=== PATIENT | male | born 1990 | race Caucasian/White ===

== ENCOUNTER 2017-07-29 19:37 | Emergency (ER) | payer SELFPAY ==
[~2017-07-29] VITALS: Ht 167.6 cm; Wt 71.1 kg
[~2017-07-29 19:37] MED LIST: Z.0.NO CURRENT MEDS
[2017-07-29 19:38] VITALS: BP 129/78; PULSE 72; RESP 16; TEMP 97.9; O2SAT 98
[2017-07-29] MEDS ORDERED: SODIUM CHLOR 0.9% 1000 ML INJ 1,000 ML IV SCH (19:49)
--- NOTE | 2017-07-29 19:52 | PD ---
HPI Chief Complaint: GI Complaint Time Seen by Provider: 19:43 Travel History International Travel<30 days: No Contact w/Intl Traveler<30days: No Traveled to known affect area: No History of Present Illness HPI 26-year-old male here for evaluation of epigastric and left upper quadrant abdominal pain. The patient reports that the pain has been going on for about a week, constant, intermittently worse at times, currently 5 out of 10, sharp, nonradiating, worse with inspiration, worse in the morning and in the evening time. He denies history of abdominal surgeries. No fevers or chills. No nausea or vomiting. No history of DVT or PE. No hemoptysis. No chest pain. PFSH Past Medical History Diminished Hearing: No Immunizations Current: No Social History Alcohol Use: No Tobacco Use: No Substance Use: No Allergies-Medications (Allergen,Severity, Reaction): Coded Allergies: No Known Allergies (Unverified Adverse Reaction, Unknown, 07/29/17) Reported Meds & Prescriptions Reported Meds & Active Scripts Active No Active Prescriptions or Reported Medications Review of Systems Except as stated in HPI: all other systems reviewed are Neg Physical Exam Narrative GENERAL: Well-developed, well-nourished, comfortable, no apparent distress. SKIN: Focused skin assessment warm/dry. No rash. HEAD: Atraumatic. Normocephalic. EYES: Pupils equal and round. No scleral icterus. No injection or drainage. ENT: Mucous membranes pink and moist. NECK: Trachea midline. No JVD. CARDIOVASCULAR: Regular rate and rhythm. No murmur appreciated. RESPIRATORY: No accessory muscle use. Clear to auscultation. Breath sounds equal bilaterally. GASTROINTESTINAL: Abdomen soft, nondistended. Mild epigastric and left upper quadrant tenderness without peritoneal signs. Rest of abdomen is soft and nontender. No hernias. Normal bowel sounds. MUSCULOSKELETAL: No obvious deformities. No clubbing. No cyanosis. No edema. NEUROLOGICAL: Awake and alert. No obvious cranial nerve deficits. Motor grossly within normal limits. Normal speech. PSYCHIATRIC: Appropriate mood and affect; insight and judgment normal. Data Data Last Documented VS Vital Signs Date Time Temp Pulse Resp B/P (MAP) Pulse Ox O2 Delivery O2 Flow Rate FiO2 07/29/17 21:20 74 16 148/73 (98) 97 Room Air 07/29/17 19:38 97.9 Orders Orders Complete Blood Count With Diff (07/29/17 19:49) Comprehensive Metabolic Panel (07/29/17 19:49) Lipase (07/29/17 19:49) Prothrombin Time / Inr (Pt) (07/29/17 19:49) Act Partial Throm Time (Ptt) (07/29/17 19:49) Urinalysis - C+S If Indicated (07/29/17 19:49) Ct Abd/Pel W Iv Contrast(Rout) (07/29/17 19:49) Iv Access Insert/Monitor (07/29/17 19:49) Ecg Monitoring (07/29/17 19:49) Oximetry (07/29/17 19:49) Pantoprazole Inj (Protonix Inj) (07/29/17 20:00) Sodium Chlor 0.9% 1000 Ml Inj (Ns 1000 M (07/29/17 19:49) Sodium Chloride 0.9% Flush (Ns Flush) (07/29/17 20:00) Al-Mag Hy-Si 40-40-4 Mg/Ml Liq (Mag-Al P (07/29/17 20:00) Lidocaine 2% Viscous (Xylocaine 2% Visco (07/29/17 20:00) Electrocardiogram (07/29/17 19:49) Chest, Single Ap (07/29/17 19:49) Iohexol 350 Inj (Omnipaque 350 Inj) (07/29/17 21:46) Labs Laboratory Tests Test 07/29/17 20:10 07/29/17 20:35 White Blood Count 7.6 TH/MM3 Red Blood Count 5.45 MIL/MM3 Hemoglobin 15.7 GM/DL Hematocrit 47.1 % Mean Corpuscular Volume 86.5 FL Mean Corpuscular Hemoglobin 28.9 PG Mean Corpuscular Hemoglobin Concent 33.4 % Red Cell Distribution Width 11.4 % Platelet Count 306 TH/MM3 Mean Platelet Volume 8.3 FL Neutrophils (%) (Auto) 56.6 % Lymphocytes (%) (Auto) 30.9 % Monocytes (%) (Auto) 9.2 % Eosinophils (%) (Auto) 2.9 % Basophils (%) (Auto) 0.4 % Neutrophils # (Auto) 4.4 TH/MM3 Lymphocytes # (Auto) 2.3 TH/MM3 Monocytes # (Auto) 0.7 TH/MM3 Eosinophils # (Auto) 0.2 TH/MM3 Basophils # (Auto) 0.0 TH/MM3 CBC Comment DIFF FINAL Differential Comment Prothrombin Time 11.0 SEC Prothromb Time International Ratio 1.1 RATIO Activated Partial Thromboplast Time 28.6 SEC Blood Urea Nitrogen 12 MG/DL Creatinine 0.93 MG/DL Random Glucose 94 MG/DL Total Protein 7.6 GM/DL Albumin 4.1 GM/DL Calcium Level 8.8 MG/DL Alkaline Phosphatase 79 U/L Aspartate Amino Transf (AST/SGOT) 20 U/L Alanine Aminotransferase (ALT/SGPT) 21 U/L Total Bilirubin 0.5 MG/DL Sodium Level 139 MEQ/L Potassium Level 3.5 MEQ/L Chloride Level 105 MEQ/L Carbon Dioxide Level 27.1 MEQ/L Anion Gap 7 MEQ/L Estimat Glomerular Filtration Rate 100 ML/MIN Lipase 140 U/L Urine Color YELLOW Urine Turbidity CLEAR Urine pH 7.0 Urine Specific [place] 1.017 Urine Protein NEG mg/dL Urine Glucose (UA) NEG mg/dL Urine Ketones NEG mg/dL Urine Occult Blood NEG Urine Nitrite NEG Urine Bilirubin NEG Urine Leukocyte Esterase NEG Urine WBC 0-2 /hpf Urine Squamous Epithelial Cells 0-5 /hpf Microscopic Urinalysis Comment CULT NOT INDICATED MDM Medical Decision Making Medical Screen Exam Complete: Yes Emergency Medical Condition: Yes Interpretation(s) EKG: Sinus, rate 65, normal axis, normal intervals, no acute ischemic abnormality. Differential Diagnosis Gastritis, peptic ulcer disease, pancreatitis, hepatobiliary disease, splenic infarct, GERD, ACS unlikely, PE unlikely Narrative Course Vital signs are within normal limits. CBC is unremarkable. CMP is unremarkable. UA is within normal limits, not suggestive of UTI, no hematuria. Chest x-ray: No acute cardiopulmonary disease. CT Abdomen pelvis: Essentially unremarkable study. The patient was given GI cocktail and IV Protonix and on reassessment he is resting comfortably. There are no peritoneal signs on exam. His pain is mainly left upper quadrant and I believe he likely has gastritis or even peptic ulcer disease. Plan is to start him on Protonix. I informed him on foods and medications to avoid especially NSAIDs. He will be given the information to the [place] [facility] as well as the integrated program teacher sculpture conservator with him to follow up with this week. He was informed on when to return to the emergency department. He verbalizes understanding and agreement with plan. Diagnosis Primary Impression: Abdominal pain, left upper quadrant Referrals: Ria Hunter MD 3 days Social Service Worker [facility] 3 days Additional Instructions: Follow-up with a primary care physician this week. Follow-up with integrated program teacher Dr. Hunter or a integrated program teacher of your choice this week. Avoid aspirin and ibuprofen as well as other foods as discussed. Return to the emergency department for worsening symptoms or any other concerns. Scripts Pantoprazole (Protonix) 40 Mg Tab 40 MG PO DAILY for Reflux, #30 TAB 0 Refills Prov: Jm Lee MD 07/29/17 Disposition: 01 DISCHARGE HOME Condition: Stable Jm Lee MD Jul 29, 2017 19:52
[2017-07-29] MEDS ORDERED: SODIUM CHLORIDE 0.9% FLUSH 10 ML FLUSH IV FLUSH PRN (20:00)
[2017-07-29] MEDS ORDERED: PANTOPRAZOLE SODIUM 40 MG VIAL IVP ONE (20:00)
[2017-07-29] MEDS ORDERED: LIDOCAINE VISCOUS 2% SOLN 15 ML UDC PO ONE (20:00)
[2017-07-29] MEDS ORDERED: ALUMINUM/MAGNESIUM/SIMETH 30 ML CUP PO ONE (20:00)
--- NOTE | 2017-07-29 20:10 | RADRPT ---
EXAM DATE/TIME: 07/29/2017 20:01 [facility] COMPARISON: No previous studies available for comparison. INDICATIONS : Chest pain. MEDICAL HISTORY : None. SURGICAL HISTORY : None. ENCOUNTER: Initial ACUITY: 1 week PAIN SCORE: 4/10 LOCATION: Bilateral chest FINDINGS: The lungs are clear without infiltrate, nodule, or mass. There is no appreciable pleural effusion fo r technique. Heart and mediastinum are unremarkable. CONCLUSION: No acute cardiopulmonary disease. Jarek Crandall MD on July 29, 2017 at 20:07 Board Certified Radiologist. This report was verified electronically.
[2017-07-29 20:20] VITALS: BP 148/84; PULSE 75; RESP 16; O2SAT 98
[2017-07-29 20:41] LABS: AUTOMATED NEUTROPHIL # 4.4 TH/MM3 (1.8-7.7); BASOPHIL % 0.4 % (0.0-2.0); EOSINOPHIL # 0.2 TH/MM3 (0-0.4); EOSINOPHIL % 2.9 % (0.0-4.0); HEMATOCRIT 47.1 % (39.0-51.0); HEMOGLOBIN 15.7 GM/DL (13.0-17.0); LYMPH % 30.9 % (9.0-44.0); LYMPHOCYTE # 2.3 TH/MM3 (1.0-4.8); MEAN CELL VOLUME 86.5 FL (80.0-100.0); MEAN CORPUSCULAR HEMOGLOBIN 28.9 PG (27.0-34.0); MEAN CORPUSCULAR HGB CONC 33.4 % (32.0-36.0); MEAN PLATELET VOLUME 8.3 FL (7.0-11.0); MONO % 9.2 % (0.0-8.0); MONOCYTE # 0.7 TH/MM3 (0-0.9); NEUT % 56.6 % (16.0-70.0); PLATELET COUNT 306 TH/MM3 (150-450); RED BLOOD COUNT 5.45 MIL/MM3 (4.50-5.90); RED CELL DISTRIBUTION WIDTH 11.4 % (11.6-17.2); WHITE BLOOD COUNT 7.6 TH/MM3 (4.0-11.0)
[2017-07-29 20:50] LABS: CHLORIDE 105 MEQ/L (98-107); SODIUM (NA) 139 MEQ/L (136-145)
[2017-07-29 20:54] LABS: ALBUMIN 4.1 GM/DL (3.4-5.0); BICARBONATE 27.1 MEQ/L (21.0-32.0); BLOOD UREA NITROGEN 12 MG/DL (7-18); CALCIUM 8.8 MG/DL (8.5-10.1); GLUCOSE,RANDOM 94 MG/DL (74-106); LIPASE 140 U/L (73-393)
[2017-07-29 20:55] LABS: INTERNATIONAL NORMALIZED RATIO 1.1 RATIO
[2017-07-29 20:57] LABS: ALT (GPT) 21 U/L (12-78); AST (GOT) 20 U/L (15-37); CREATININE 0.93 MG/DL (0.60-1.30); GLOMERULAR FILTRATION RATE 100 ML/MIN (>89)
[2017-07-29 20:58] LABS: TOTAL BILIRUBIN ADULT 0.5 MG/DL (0.2-1.0)
[2017-07-29 20:59] LABS: TOTAL PROTEIN 7.6 GM/DL (6.4-8.2)
[2017-07-29 21:00] LABS: ALKALINE PHOSPHATASE 79 U/L (45-117)
[2017-07-29 21:08] LABS: BILIRUBIN, URINE NEG (NEG); BLOOD, URINE NEG (NEG); GLUCOSE,URINE NEG (NEG); KETONE, URINE NEG (NEG); NITRITE,URINE NEG (NEG); URINE LEUKOCYTE ESTERASE NEG (NEG)
[2017-07-29 21:15] LABS: URINE COLOR YELLOW (YELLW/STRAW)
[2017-07-29 21:16] LABS: SQUAMOUS EPITHELIAL CELL URINE 0-5 /hpf (0-5); WBC, URINE 0-2 /hpf (0-5)
[2017-07-29 21:20] VITALS: BP 148/73; PULSE 74; RESP 16; O2SAT 97
[2017-07-29] MEDS ORDERED: IOHEXOL 350 MG/ML 10 ML VIAL (for RAD DIAG) IVCONTRAST ONE (21:46)
--- NOTE | 2017-07-29 22:09 | RADRPT ---
EXAM DATE/TIME: 07/29/2017 21:36 [facility] COMPARISON: No previous studies available for comparison. INDICATIONS : Epigastric abdominal pain. IV CONTRAST: 100 cc Omnipaque 350 (iohexol) IV ORAL CONTRAST: No oral contrast ingested. RADIATION DOSE: 8.18 CTDIvol (mGy) MEDICAL HISTORY : None SURGICAL HISTORY : None. ENCOUNTER: Initial ACUITY: 1 week PAIN SCALE: 6/10 LOCATION: abdomen TECHNIQUE: Volumetric scanning of the abdomen and pelvis was performed. Using automated exposure control and ad justment of the mA and/or kV according to patient size, radiation dose was kept as low as reasonably achievable to obtain optimal diagnostic quality images. DICOM format image data is available electro nically for review and comparison. FINDINGS: CT Abdomen: The liver, spleen, pancreas, kidneys, adrenals are unremarkable. There is no evidence for any appreciable pathological adenopathy, free fluid, or bowel obstruction. CT pelvis: There is no evidence for mass, abscess formation, or any significant adenopathy within the pelvis. CONCLUSION: Essentially unremarkable study. Jarek Crandall MD on July 29, 2017 at 22:05 Board Certified Radiologist. This report was verified electronically.
[2017-07-29] MEDS ORDERED: PROT40TA PO (22:24)
[2017-07-29 22:40] VITALS: BP 145/77
--- NOTE | 2017-07-31 23:36 | EKG ---
Date Performed: 07/29/2017 Time Performed: 20:00:15 PTAGE: 26 years EKG: Sinus rhythm NORMAL ECG NO PREVIOUS TRACING DOCTOR: David Telles Interpretating Date/Time 07/31/2017 23:35:08
== END 2017-07-29 22:45 | disposition home or self-care (01) ==
LOC: PHED 19:37
DX: R10.12 Left upper quadrant pain (principal)
CPT/HCPCS: 71045; 74177; 80053; 81001; 83690; 85025; 85610; 85730; 93005; 96361; 96374; 99284; C9113; J7030; Q9967